=== PATIENT | female | born 1970 | race Caucasian/White ===

== ENCOUNTER 2017-05-22 17:53 | Emergency (ER) | payer SELFPAY ==
[2017-05-22 18:28] VITALS: TEMP 98.2
--- NOTE | 2017-05-22 19:35 | ED.PDOC ---
History of Present Illness - General Chief Complaint: Respiratory Problem Stated Complaint: congestion,cough,shortness of breath Time Seen by Provider: 05/22/17 19:26 Source: patient, family Exam Limitations: no limitations - History of Present Illness Comments: HEAD COLD WHICH MOVED TO CHEST > 1 WK AGO. NOT IMPROVING. COUGH, SOB. HAD SIMILAR SX PREVIOUSLY TO HER. 1PPD SMOKER. NOT ON HOME O2 USE. Cough Quality/Degree: moderate Possible Cause: illness exposure Improving Factors: nothing Worsening Factors: nothing Associated Symptoms: cough, shortness of breath Respiratory Risk Factors: other - SMOKING Allergies/Adverse Reactions: Allergies NO KNOWN ALLERGY Allergy (Verified 05/22/17 18:28) Home Medications: Ambulatory Orders Albuterol Sulfate [Proair Hfa] 2 puff INH Q6H PRN #1 inhaler 05/22/17 Azithromycin 250 mg PO DAILY #4 tab 05/22/17 Carvedilol 3.125 mg PO DAILY 05/22/17 Furosemide [Lasix] 20 mg PO DAILY 05/22/17 Lisinopril 10 mg PO DAILY 05/22/17 Methylprednisolone [Medrol Dose Abdifatah] 4 mg PO DAILY #1 tab 05/22/17 Spironolactone 12.5 mg PO DAILY 05/22/17 Review of Systems - Review of Systems Constitutional: Denies: diaphoresis, fever EENTM: Denies: ear pain, nose congestion Respiratory: States: cough, short of breath. Denies: wheezing Cardiology: Denies: chest pain, palpitations Gastrointestinal/Abdominal: States: no symptoms reported Genitourinary: States: no symptoms reported Musculoskeletal: States: no symptoms reported Skin: States: no symptoms reported Neurological: States: no symptoms reported Endocrine: States: no symptoms reported Hematologic/Lymphatic: States: no symptoms reported All other Systems: Reviewed and Negative Past Medical History (General) - Patient Medical History Hx Congestive Heart Failure: Yes Hx Diabetes: No Surgical History: no surgical history - Vaccination History Hx Influenza Vaccination: No Hx Pneumococcal Vaccination: No - Social History Hx Tobacco Use: Yes Family Medical History - Family History Mother Family History: Unknown Living Status: Unknown Physical Exam - Physical Exam General Appearance: Alert, Ill Appearing, Other - APPEARS FAR OLDER THAN STATED AGE. Eye Exam: bilateral normal ENT Exam: normal ENT inspection, hearing grossly normal, TMs normal, pharynx normal - EXCEPT HAS NO MAXILLARY TEETH. Neck: non-tender, full range of motion, supple, other - NO JVD Respiratory: chest non-tender, lungs clear, normal breath sounds, other - MILDLY INCREASED WOB. Cardiovascular/Chest: normal peripheral pulses, regular rate, rhythm, no edema, no gallop, no JVD, no murmur Gastrointestinal/Abdominal: normal bowel sounds, non tender, soft Extremity: non-tender, normal inspection, other - NO LE EDEMA. Neurologic: no motor/sensory deficits, alert, normal mood/affect, oriented x 3 Skin Exam: warm/dry, pallor Lymphatic: no adenopathy Progress - Progress Progress: 05/22/17 21:38 DYSPNEA IMPROVING. O2 SATS WERE INITIALLY 89% ON ADMISSION, INCREASED TO 96% ON 2L NC, THEN DROPPED TO 86%. I INCREASED TO 3L NC. NOW 98%, THUS I JUST DROPPED TO 2L TO SEE IF HOLDING STEADY. WILL WEAN OFF PRIOR TO DC TO ENSURE DYSPNEA REMAINS CONTROLLED. 05/22/17 22:13 SATS 96% ON 2L AND PT FEELING BETTER. DECREASED O2 TO 1L AND WILL RECHECK. 05/22/17 22:17 CBC = WBC 18, ELEV NEUTS. CXR = LUNGS HYPERINFLATED C/W COPD (NEW DX FOR PT) EKG = SINUS W/ PROLONGED QT INTERVAL. TOB ABUSE, H/O CHF (NO EVIDENCE TONIGHT), DYSPNEA AND HYPOXIA IMPROVED, COPD W/ EXACERBATION - SAFE FOR DC HOME W/ PROAIR, MEDROL DOSE PACK, AZITHROMYCIN SINCE SMOKER. Departure - Departure Clinical Impression: COPD with acute exacerbation, Hypoxia, Acute dyspnea, Tobacco abuse, History of CHF (congestive heart failure) Disposition: Discharge to Home or Self Care Condition: Good Departure Forms: ED Discharge - Pt. Copy, Patient Portal Self Enrollment Instructions: Smoking Cessation for Older Adults: It's Not Too Late!, DI for Chronic Obstructive Pulmonary Disease Diet: resume usual diet Activity: increase activity as tolerated Referrals: Jose Alberto Jensen MD [Primary Care Provider] - 1-5 Days Prescriptions: Albuterol Sulfate [Proair Hfa] 2 puff INH Q6H PRN #1 inhaler PRN Reason: Shortness Of Breath/Wheezing Azithromycin 250 mg PO DAILY #4 tab Methylprednisolone [Medrol Dose Abdifatah] 4 mg PO DAILY #1 tab Home Medications: Ambulatory Orders Albuterol Sulfate [Proair Hfa] 2 puff INH Q6H PRN #1 inhaler 05/22/17 Azithromycin 250 mg PO DAILY #4 tab 05/22/17 Carvedilol 3.125 mg PO DAILY 05/22/17 Furosemide [Lasix] 20 mg PO DAILY 05/22/17 Lisinopril 10 mg PO DAILY 05/22/17 Methylprednisolone [Medrol Dose Abdifatah] 4 mg PO DAILY #1 tab 05/22/17 Spironolactone 12.5 mg PO DAILY 05/22/17 Additional Instructions: The chest x-ray shows you have developed COPD, which is caused by smoking. Please do your best to decrease and stop smoking because smoking also causes and worsens heart failure. Please see your regular doctor for different methods that can help you to stop smoking because I know this is really difficult.
[2017-05-22] MEDS ORDERED: IPRATROPIUM/ALBUTEROL 3 ML VIAL NEB ONE (19:40)
[2017-05-22] MEDS ORDERED: IPRATROPIUM/ALBUTEROL 3 ML VIAL INH ONE (19:49)
[2017-05-22] MEDS ORDERED: methylPREDNISolone SODIUM SUC 125 MG/2 ML VIAL IV ONE (19:53)
[2017-05-22] MEDS ORDERED: AZITHROMYCIN IV 500 MG in SODIUM CHLORIDE 0.9% 250ML 250 ML IVPB ONE (19:55)
[2017-05-22] MEDS ORDERED: AZITHROMYCIN IV 500 MG VIAL IVPB ONE (20:01)
[2017-05-22] MEDS ORDERED: SODIUM CHLORIDE 0.9% 250ML 250 ML ONE (20:02)
--- NOTE | 2017-05-22 20:24 | RAD ---
Examination: XR CHEST 1 VIEW dated 05/22/2017 7:52 PM CDT History: ACUTE HYPOXIA, DYSPNEA, TOB ABUSE. Comparison: 2008 Technique: Frontal view of the chest Findings: Chronic appearing reticular opacities are seen within both lungs, more so within the lower lobes. No focal consolidation. No pneumothorax or pleural effusion. The cardiomediastinal silhouette is within normal limits. Impression: No acute findings. Changes of chronic lung disease. Electronically signed by: Deacon Vigil MD 05/22/2017 8:23 PM CDT
[2017-05-22] MEDS ORDERED: ONDANSETRON INJ 4 MG/2 ML VIAL ONE (20:36)
[2017-05-22] MEDS ORDERED: ONDANSETRON INJ 4 MG/2 ML VIAL IV ONE (20:49)
[2017-05-22 22:21] VITALS: BP 141/85
[2017-05-22 22:42] VITALS: O2SAT 91
== END 2017-05-22 22:42 | disposition home or self-care (01) ==
LOC: ER 17:53
DX: J44.1 Chronic obstructive pulmonary disease with (acute) exacerbation (principal); I50.9 Heart failure, unspecified; R09.02 Hypoxemia; F17.200 Nicotine dependence, unspecified, uncomplicated; Z79.899 Other long term (current) drug therapy
CPT/HCPCS: 36415; 71010; 85025; 93005; 94640; J0456; J2405; J2930; J7050; J7620

== ENCOUNTER → 2017-08-29 | Outpatient (CLI) | payer SELFPAY ==
--- NOTE | 2017-08-29 17:58 | RAD ---
EXAM: Chest,2 Views CLINICAL INDICATION: 46-year-old female with COPD with acute exacerbation. TECHNIQUE: Two-view, PA and lateral projections of the chest were obtained. COMPARISON: Single view chest 05/22/2017. FINDINGS: Stable cardiac and mediastinal silhouette. Heart size is normal. Large lung volumes with flattening of the diaphragms compatible with chronic obstructive pulmonary disease. Blunting of the bilateral costophrenic angles may be secondary to small pleural effusion versus scarring. Lungs are clear without focal opacity, pneumothorax. The visualized bones are within normal limits. IMPRESSION: 1. Large lung volumes compatible with chronic obstructive pulmonary disease. 2. No discrete focal opacity. 3. Blunting of the bilateral costophrenic angles suggests trace pleural effusion versus scarring. Electronically signed by: Latanya Linder MD 08/29/2017 5:57 PM HAND II [employer]
== END | disposition home or self-care (01) ==
LOC: RAD 16:55
PROVIDERS: ATTEND Nurse Practitioner Family
DX: J44.1 Chronic obstructive pulmonary disease with (acute) exacerbation (principal)

== ENCOUNTER 2018-02-17 17:15 | Emergency (ER) | payer SELFPAY ==
--- NOTE | 2018-02-17 17:46 | ED.PDOC ---
History of Present Illness - General Chief Complaint: ENT Problem Stated Complaint: L ear discomfort, sore throat Time Seen by Provider: 02/17/18 17:35 Source: patient Exam Limitations: no limitations - History of Present Illness Initial Comments: Patient complaints of sore throat and dry cough for one week. She has also had a subjective fever. She denies nasal exudates. She said she woke up this morning and her left ear felt full and the left side of her face was mildly swollen. The swelling has since resolved. She stopped smoking cigarettes 9 months ago and has felt better since. No dyspnea. No other complaints. Timing/Duration: 1 week Severity: mild Improving Factors: nothing Worsening Factors: nothing Associated Symptoms: cough Allergies/Adverse Reactions: Allergies NO KNOWN ALLERGY Allergy (Verified 02/17/18 17:22) Home Medications: Ambulatory Orders Carvedilol 3.125 mg PO BID 05/22/17 Furosemide [Lasix] 20 mg PO DAILY 05/22/17 Lisinopril 10 mg PO DAILY 05/22/17 Spironolactone 25 mg PO DAILY 05/22/17 Azithromycin Tab [Zithromax Tab] 250 mg PO QD #4 tab 02/17/18 Cefdinir [Omnicef] 300 mg PO BID #12 cap 02/17/18 Review of Systems - Review of Systems Constitutional: States: see HPI EENTM: States: see HPI Respiratory: States: see HPI Cardiology: States: no symptoms reported Gastrointestinal/Abdominal: States: no symptoms reported Genitourinary: States: no symptoms reported Musculoskeletal: States: no symptoms reported Skin: States: no symptoms reported Neurological: States: no symptoms reported Endocrine: States: no symptoms reported Hematologic/Lymphatic: States: no symptoms reported Past Medical History (General) - Patient Medical History Hx Stroke: No Hx Congestive Heart Failure: Yes Hx Hypertension: Yes Hx Diabetes: No - Vaccination History Hx Influenza Vaccination: No Hx Pneumococcal Vaccination: No - Social History Hx Tobacco Use: Yes - 04/2017 Family Medical History - Family History Mother Family History: Unknown Living Status: Unknown Physical Exam - Physical Exam General Appearance: Alert Eye Exam: bilateral normal Ears, Nose, Throat: other - Left TM is swollen and opaque. No erythema. Right TM is clear, malleus visible. OP mildly erythmatic. No nasal exudates. Neck: non-tender, full range of motion, supple Respiratory: chest non-tender, lungs clear, decreased breath sounds - all lung andrews the breath sounds are moderately distant Cardiovascular/Chest: normal peripheral pulses, regular rate, rhythm, no edema Gastrointestinal/Abdominal: normal bowel sounds, non tender, soft Back Exam: no CVA tenderness Skin Exam: normal color Lymphatic: no adenopathy Progress - Progress Progress: 02/17/18 18:47 CXR showed left lower lobe infiltrate. Patient was asymptomatic in the E.D. wbc wnl. Given Rocephin 1 gram IM x one and Azithromycin 500 mg po x one. Sent home with Azithromycin and Omnicef. Laboratory Tests 02/17/18 02/17/18 02/17/18 17:26 17:56 17:56 WBC 10.8 RBC 3.75 L Hgb 11.8 L Hct 35.7 L MCV 95.2 MCH 31.4 H MCHC 33.1 RDW 13.4 Plt Count 326 MPV 8.1 Absolute Neuts (auto) 7.60 H Absolute Lymphs (auto) 1.90 Absolute Monos (auto) 1.00 H Absolute Eos (auto) 0.20 Absolute Basos (auto) 0.10 Neutrophils % 70.6 Lymphocytes % 17.8 L Monocytes % 8.9 Eosinophils % 1.8 Basophils % 0.9 Sodium 138 Potassium 3.3 L Chloride 105 Carbon Dioxide 25 Anion Gap 11.3 L BUN 10 Creatinine 0.95 BUN/Creatinine Ratio 10.5 Random Glucose 113 H Serum Osmolality 275.5 Calcium 8.7 Group A Strep Rapid Negative 02/17/18 18:52 Patient agreed to have a Rocephin shot but refused blood cultures because she didn't want any more needle sticks. Departure - Departure Clinical Impression: Pneumonia Disposition: Discharge to Home or Self Care Condition: Good Departure Forms: ED Discharge - Pt. Copy, Patient Portal Self Enrollment Instructions: DI for Ear Pain-Adult Diet: resume usual diet Activity: increase activity as tolerated Referrals: Katie Patel NP [Primary Care Provider] - 1-2 Weeks Prescriptions: Azithromycin Tab [Zithromax Tab] 250 mg PO QD #4 tab Cefdinir [Omnicef] 300 mg PO BID #12 cap Home Medications: Ambulatory Orders Carvedilol 3.125 mg PO BID 05/22/17 Furosemide [Lasix] 20 mg PO DAILY 05/22/17 Lisinopril 10 mg PO DAILY 05/22/17 Spironolactone 25 mg PO DAILY 05/22/17 Azithromycin Tab [Zithromax Tab] 250 mg PO QD #4 tab 02/17/18 Cefdinir [Omnicef] 300 mg PO BID #12 cap 02/17/18 Additional Instructions: Take medications as prescribed. Return to the E.R. for shortness of breath or worsening cough. See your regular doctor in three days for re-evaluation.
--- NOTE | 2018-02-17 18:09 | RAD ---
EXAM DESCRIPTION: Chest,2 Views CLINICAL HISTORY: cough COMPARISON: 08/29/2017 FINDINGS: Two views of the chest are submitted. There is mild atelectasis at the left lung base with a small left pleural effusion. Small region of consolidation is also at the left lung base. Cardiac silhouette appears normal. No acute bony abnormality. There is no significant pulmonary vascular engorgement. IMPRESSION: Left lung consolidation and atelectasis. Electronically signed by: Cruz Kathleen 02/17/2018 6:08 PM CDT
[2018-02-17] MEDS ORDERED: cefTRIAXone SODIUM 1 GM in SODIUM CHL 0.9% 50ML MIN-BAG+ 50 ML IVPB ONE (18:15)
[2018-02-17] MEDS ORDERED: AZITHROMYCIN 250 MG TAB PO ONE (18:15)
[2018-02-17] MEDS ORDERED: cefTRIAXone SODIUM 1 GM VIAL IM ONE (18:18)
[2018-02-17 19:07] VITALS: BP 114/74; TEMP 99; O2SAT 96
== END 2018-02-17 19:05 | disposition home or self-care (01) ==
LOC: ER 17:15
DX: J18.9 Pneumonia, unspecified organism (principal); H92.02 Otalgia, left ear; I50.9 Heart failure, unspecified; I11.0 Hypertensive heart disease with heart failure; Z79.899 Other long term (current) drug therapy; Z87.891 Personal history of nicotine dependence
CPT/HCPCS: 36415; 71046; 80048; 85025; 87070; 87880; J0696; Q0144

== ENCOUNTER 2018-02-24 16:18 | Emergency (ER) | payer SELFPAY ==
--- NOTE | 2018-02-24 16:54 | ED.PDOC ---
History of Present Illness - General Chief Complaint: Respiratory Problem Stated Complaint: left ear stopped up,congestion Time Seen by Provider: 02/24/18 16:46 Source: patient Exam Limitations: no limitations - History of Present Illness Initial Comments: the patient is a 47-year-old female with a history of COPD and CHF along with a left inner ear infection a couple of weeks ago as well as the possible start of a pneumonia couple of weeks ago. The patient was written for a couple of antibiotics and had done well with these antibiotics and was clearing up until this morning when she started having a little bit of coughing. She has not had good hearing since the infection and still does not. She is not having any fever. No real productive cough. No nausea vomiting or diarrhea. No syncope or near-syncope. No real shortness of breath. Timing/Duration: unsure Severity: mild Improving Factors: nothing Worsening Factors: nothing Associated Symptoms: cough Allergies/Adverse Reactions: Allergies NO KNOWN ALLERGY Allergy (Verified 02/17/18 17:22) Home Medications: Ambulatory Orders Carvedilol 3.125 mg PO BID 05/22/17 Furosemide [Lasix] 40 mg PO DAILY 05/22/17 Lisinopril 10 mg PO DAILY 05/22/17 Spironolactone 25 mg PO DAILY 05/22/17 predniSONE [Prednisone] 20 mg PO DAILY #3 tab 02/24/18 Review of Systems - Review of Systems Constitutional: States: no symptoms reported EENTM: States: see HPI Respiratory: States: see HPI Cardiology: States: no symptoms reported Gastrointestinal/Abdominal: States: no symptoms reported Genitourinary: States: no symptoms reported Musculoskeletal: States: no symptoms reported Skin: States: no symptoms reported Neurological: States: no symptoms reported Endocrine: States: no symptoms reported All other Systems: No Change from Baseline Past Medical History (General) - Patient Medical History Hx Stroke: No Hx Congestive Heart Failure: Yes Hx Hypertension: Yes Hx Diabetes: No Surgical History: no surgical history - Vaccination History Hx Influenza Vaccination: No Hx Pneumococcal Vaccination: No - Social History Hx Tobacco Use: Yes - quit 9 monnths ago Family Medical History - Family History Mother Family History: Unknown Living Status: Unknown Physical Exam - Physical Exam General Appearance: Alert, Comfortable, No apparent distress Eye Exam: bilateral normal Ears, Nose, Throat: hearing grossly normal, normal pharynx, other - left eardrum is still mildly thickened from previous infection and there is a fluid level behind it but no active inflammation Neck: full range of motion, supple, normal inspection Respiratory: lungs clear, normal breath sounds, no respiratory distress, no accessory muscle use Cardiovascular/Chest: normal peripheral pulses, regular rate, rhythm, no edema Peripheral Pulses: radial,right: 2+, radial,left: 2+ Gastrointestinal/Abdominal: non tender, soft Rectal Exam: deferred Back Exam: no CVA tenderness, no vertebral tenderness Extremity: normal range of motion, non-tender, normal inspection, no pedal edema , normal capillary refill Neurologic: outside collector II-XII nml as tested, alert, normal mood/affect, oriented x 3 Skin Exam: normal color Comments: Vital Signs - 24 hr 02/24/18 16:30 Temperature 98.9 F Pulse Rate [ 90 Left Brachial] Respiratory 20 Rate Blood Pressure 114/76 [Left Arm] O2 Sat by Pulse 95 Oximetry Progress - Progress Progress: 02/24/18 16:55 the patient's a 47-year-old female presenting to the emergency room secondary to mild respiratory symptoms consistent with a very mild COPD exacerbation. She just completed a course of antibiotics for pneumonia. She is going to be placed on 3 days of prednisone 20 mg daily for the COPD and she does need to resume her breathing treatments 3 times a day for the next 3 or 4 days. Her ear does appear to be healing as it should. She needs to continue with her tobacco cessation. She needs to follow-up with her primary care doctor later this week. Departure - Departure Clinical Impression: COPD with acute exacerbation Disposition: Discharge to Home or Self Care Condition: Fair Departure Forms: ED Discharge - Pt. Copy, Patient Portal Self Enrollment Instructions: Exacerbation of COPD (DC) Diet: low salt diet Activity: increase activity as tolerated Referrals: Katie Patel NP [Primary Care Provider] - 1-5 Days Prescriptions: predniSONE [Prednisone] 20 mg PO DAILY #3 tab Home Medications: Ambulatory Orders Carvedilol 3.125 mg PO BID 05/22/17 Furosemide [Lasix] 40 mg PO DAILY 05/22/17 Lisinopril 10 mg PO DAILY 05/22/17 Spironolactone 25 mg PO DAILY 05/22/17 predniSONE [Prednisone] 20 mg PO DAILY #3 tab 02/24/18 Additional Instructions: the patient's a 47-year-old female presenting to the emergency room secondary to mild respiratory symptoms consistent with a very mild COPD exacerbation. She just completed a course of antibiotics for pneumonia. She is going to be placed on 3 days of prednisone 20 mg daily for the COPD and she does need to resume her breathing treatments 3 times a day for the next 3 or 4 days. Her ear does appear to be healing as it should. She needs to continue with her tobacco cessation. She needs to follow-up with her primary care doctor later this week.
[2018-02-24] MEDS: predniSONE 20 MG TAB PO ONE (16:56)
[2018-02-24 17:15] VITALS: BP 123/77; TEMP 98.4; O2SAT 99
== END 2018-02-24 17:04 | disposition home or self-care (01) ==
LOC: ER 16:18
DX: J44.1 Chronic obstructive pulmonary disease with (acute) exacerbation (principal); I11.0 Hypertensive heart disease with heart failure; I50.9 Heart failure, unspecified; Z87.891 Personal history of nicotine dependence